=== PATIENT | female | born 1990 | race African-American/Black ===

== ENCOUNTER 2023-11-02 04:17 | Day surgery (SDC) | payer OTHER ==
[2023-10-26 10:53] VITALS: BMI 45.6
[2023-11-02] MEDS ORDERED: BUPIVACAINE HCL/PF 0.25% (2.5MG/ML) 10 ML VIAL ONE (10:07)
[2023-11-02] MEDS ORDERED: ROCURONIUM BROMIDE 50 MG/5 ML SYRINGE ONE ×2 (10:20→11:44)
[2023-11-02] MEDS ORDERED: SUCCINYLCHOLINE CHLORIDE 200 MG/10 ML SYRINGE ONE (10:20)
[2023-11-02] MEDS ORDERED: ONDANSETRON 4 MG/2 ML VIAL ONE ×2 (10:20→14:31)
[2023-11-02] MEDS ORDERED: DEXAMETHASONE SOD PHOSPHATE 4 MG/1 ML VIAL ONE (10:20)
[2023-11-02] MEDS ORDERED: KETOROLAC TROMETHAMINE 30 MG/1 ML VIAL ONE ×2 (10:20→12:47)
[2023-11-02] MEDS ORDERED: LIDOCAINE HCL/PF 2% SDV 5ML VIAL ONE ×2 (10:20→13:19)
[2023-11-02] MEDS ORDERED: ACETAMINOPHEN INJECTION 100 ML IVPB ONE (10:22)
[2023-11-02] MEDS ORDERED: cefOXitin SODIUM 2 GM VIAL (RESTRICTED TO ID) IVPB ONE ×2 (10:22→11:15)
[2023-11-02] MEDS ORDERED: PROPOFOL 40 ML ONE (10:23)
[2023-11-02] MEDS ORDERED: HEPARIN NA (PORCINE) 5,000 UNITS/ML 1ML VIAL ONE (10:24)
[2023-11-02] MEDS ORDERED: MIDAZOLAM HCL 2 MG/2 ML SINGLE DOSE VIAL ONE (10:27)
[2023-11-02] MEDS ORDERED: HYDROmorphone HCl 2 MG/ML VIAL ONE ×2 (11:01→14:41)
[2023-11-02] MEDS ORDERED: KETAMINE HCL 200 MG/20 ML VIAL ONE (11:01)
[2023-11-02] MEDS ORDERED: MAGNESIUM SULF 50% (8.12 MEQ/2 ML-1 GM VIAL) ONE (11:22)
[2023-11-02] MEDS ORDERED: BUPIVACAINE HCL/PF 0.25% (2.5MG/ML) 10 ML VIAL IJ ONE (11:43)
[2023-11-02] MEDS ORDERED: ONDANSETRON 4 MG/2 ML VIAL IVPUSH PRN (12:04)
[2023-11-02] MEDS ORDERED: oxyCODONE HCL 5 MG TABLET PO PRN (12:04)
[2023-11-02] MEDS ORDERED: LACTATED RINGERS SOLUTION 1,000 ML IV SCH (12:15)
[2023-11-02] MEDS ORDERED: SUGAMMADEX SODIUM 200 MG/2 ML VIAL ONE (12:44)
[2023-11-02] MEDS ORDERED: SODIUM CHLORIDE 0.9% P/F 10 ML VIAL IJ ONE (14:36)
[2023-11-02] MEDS ORDERED: oxyCODONE HCL 5 MG TABLET ONE (15:59)
[2023-11-02 16:25] VITALS: RESP 20
[2023-11-02 16:40] VITALS: BP 108/57; PULSE 56; TEMP 97.8
[2023-11-02] MEDS ORDERED: HYDROmorphone HCl 2 MG/ML VIAL IVPUSH ONE (18:16)
== END 2023-11-02 17:00 | disposition home or self-care (01) ==
LOC: JASU-SURG 04:17
PROVIDERS: ATTEND Surgery
PROC: 0FT44ZZ Resection of Gallbladder, Percutaneous Endoscopic Approach (ICD-10-PCS; principal; 2023-11-02 13:00)
DX: K80.20 Calculus of gallbladder without cholecystitis without obstruction (principal)
CPT/HCPCS: 81025; 86850; 86900; 86901; 94760; J0131; J1644

== ENCOUNTER 2023-11-14 08:49 | Observation (INO) | payer OTHER ==
[2023-11-14] MEDS ORDERED: ONDANSETRON 4 MG/2 ML VIAL ONE ×2 (10:05→15:17)
[2023-11-14] MEDS ORDERED: morphine SULFATE 4 MG/ML VIAL ONE ×2 (10:06→15:18)
[2023-11-14] MEDS: ONDANSETRON 4 MG/2 ML VIAL IVPUSH ONE (10:12)
[2023-11-14] MEDS: morphine CARPU-JECT 4 MG/1 ML DISP.SYRIN IVPUSH ONE ×2 (10:12→15:23)
[2023-11-14 10:17] LABS: BASO % 0.6 % (0-2.0); EOS % 2.3 % (0-4.5); HEMATOCRIT 34.6 % (32.4-45.2); HEMOGLOBIN 11.4 GM/dL (10.7-15.3); LYMPH % 21.6 % (8-40); MCH 33.5 pg (25.7-33.7); MCHC 33.1 g/dl (32.0-36.0); MEAN CELL VOLUME 101.4 fl (80-96); MEAN PLT VOLUME 7.8 fl (7.5-11.1); MONO % 9.2 % (3.8-10.2); NEUT % 66.3 % (42.8-82.8); PLATELET COUNT 361 10^3/uL (134-434); RBC 3.41 M/mm3 (3.60-5.2); RDW 14.6 % (11.6-15.6); WHITE BLOOD COUNT 9.2 K/mm3 (4.0-10.0)
[2023-11-14 10:24] LABS: INR 1.28 (0.83-1.09); PROTHROMBIN TIME (PATIENT) 14.8 SEC (9.7-13.0)
[2023-11-14 10:33] LABS: POTASSIUM 4.3 mmol/L (3.5-5.1)
[2023-11-14 10:35] LABS: ALBUMIN 3.3 g/dl (3.4-5.0); BLOOD UREA NITROGEN 13.8 mg/dL (7-18); CALCIUM 8.7 mg/dL (8.5-10.1)
[2023-11-14 10:38] LABS: CREATININE 0.9 mg/dL (0.55-1.3)
[2023-11-14 10:40] LABS: BILIRUBIN,TOTAL 0.4 mg/dL (0.2-1); TOT PROT 7.3 g/dl (6.4-8.2)
[2023-11-14 11:24] LABS: EPI CELLS >36 /uL (0-25.1); HYALINE CASTS 3 /uL (0-3.1); PH,URINE 6.5 (5.0-8.0); URINE APPEARANCE CLOUDY; URINE BACTERIA >9,000 /uL (0-1359); URINE BILIRUBIN NEGATIVE (NEGATIVE); URINE COLOR DK YELLOW; URINE GLUCOSE (UA) NEGATIVE (NEGATIVE); URINE KETONE TRACE (NEGATIVE); URINE LEUK ESTERASE NEGATIVE (NEGATIVE); URINE NITRITE POSITIVE (NEGATIVE); URINE PROTEIN NEGATIVE (NEGATIVE); URINE RBC 23 /uL (0-23.9); URINE WBC 21 /uL (0-25.8)
[2023-11-14 11:34] LABS: HCG,QUALITATIVE URINE Negative
[2023-11-14] MEDS ORDERED: NITROFURANTOIN MACROCRYSTAL 50 MG CAPSULE (FP) ONE (12:22)
[2023-11-14] MEDS: NITROFURANTOIN MONOHYD/M-CRYST 100 MG CAPSULE PO ONE (12:25)
[2023-11-14] MEDS: LACTATED RINGERS SOLUTION 1,000 ML/1,000 ML INFUS.BAG IV SCH (17:57)
[2023-11-14] MEDS ORDERED: ACETAMINOPHEN INJECTION 100 ML IVPB ONE (19:13)
[2023-11-14] MEDS: ACETAMINOPHEN 1000 MG/100 ML BAG IVPB PRN (19:17)
[2023-11-14 19:23] LABS: PH,URINE 6.5 (5.0-8.0); URINE APPEARANCE CLEAR; URINE BILIRUBIN NEGATIVE (NEGATIVE); URINE COLOR YELLOW; URINE GLUCOSE (UA) NEGATIVE (NEGATIVE); URINE KETONE NEGATIVE (NEGATIVE); URINE LEUK ESTERASE NEGATIVE (NEGATIVE); URINE NITRITE NEGATIVE (NEGATIVE); URINE PROTEIN NEGATIVE (NEGATIVE)
[2023-11-14] MEDS ORDERED: AMPICILLIN NA/SULBACTAM NA 3 GM VIAL ONE (21:36)
[2023-11-14] MEDS: AMPICILLIN NA/SULBACTAM NA 3 GM in DEXTROSE 5%-WATER 100 ML IVPB SCH (21:54)
[2023-11-15 04:12] VITALS: BMI 44.6
[2023-11-15] MEDS ORDERED: oxyCODONE HCL 5 MG TABLET PO PRN (09:23)
[2023-11-15] MEDS: PANTOPRAZOLE 40 MG TABLET PO SCH (10:36)
[2023-11-15] MEDS: LACTOBACILLUS ACIDOPHILUS 1 TABLET PO SCH (10:36)
[2023-11-15] MEDS: CEPHALEXIN MONOHYDRATE 500 MG CAPSULE (UD) PO SCH (10:36)
[2023-11-15] MEDS: POLYETHYLENE GLYCOL (HEALTHYLAX) 3350 17 GM PACKET PO SCH (10:36)
[2023-11-15 10:38] LABS: BASO % 0.8 % (0-2.0); EOS % 2.9 % (0-4.5); HEMATOCRIT 33.8 % (32.4-45.2); LYMPH % 37.9 % (8-40); MCH 33.1 pg (25.7-33.7); MCHC 32.6 g/dl (32.0-36.0); MEAN CELL VOLUME 101.6 fl (80-96); MEAN PLT VOLUME 8.2 fl (7.5-11.1); MONO % 9.9 % (3.8-10.2); NEUT % 48.5 % (42.8-82.8); PLATELET COUNT 351 10^3/uL (134-434); RBC 3.33 M/mm3 (3.60-5.2); RDW 14.1 % (11.6-15.6); WHITE BLOOD COUNT 6.8 K/mm3 (4.0-10.0)
[2023-11-15 10:44] LABS: INR 1.21 (0.83-1.09)
[2023-11-15 10:47] LABS: ACTIVATED PTT 27.4 SECONDS (25.2-36.5)
[2023-11-15 10:59] LABS: POTASSIUM 4.2 mmol/L (3.5-5.1)
[2023-11-15 11:02] LABS: CALCIUM 8.7 mg/dL (8.5-10.1)
[2023-11-15 11:03] LABS: ALBUMIN 3.3 g/dl (3.4-5.0); MAGNESIUM 1.9 mg/dL (1.8-2.4)
[2023-11-15 11:06] LABS: CREATININE 0.8 mg/dL (0.55-1.3); PHOSPHOROUS 3.3 mg/dL (2.5-4.9)
[2023-11-15 11:08] LABS: BILIRUBIN,TOTAL 0.4 mg/dL (0.2-1); TOT PROT 7.2 g/dl (6.4-8.2)
[2023-11-15 11:52] VITALS: BP 127/90; PULSE 76; RESP 20; TEMP 98.2
== END 2023-11-15 12:06 | disposition home or self-care (01) ==
LOC: JER 08:49 → JERBED 16:02 → UNDOADMOB 16:02 → OBSVTOIN 17:21 → INTOOBSV 17:21 → J8W 22:21 → JERBED 22:21 → J8W 11-15 08:59 → JERBED 11-15 08:59
PROVIDERS: ADMIT Internal Medicine; ATTEND Nurse Practitioner Acute Care
PROC: 3E0337Z Introduction of Electrolytic and Water Balance Substance into Peripheral Vein, Percutaneous Approach (ICD-10-PCS; principal; 2023-11-15)
PROC: 3E033NZ Introduction of Analgesics, Hypnotics, Sedatives into Peripheral Vein, Percutaneous Approach (ICD-10-PCS; 2023-11-15)
PROC: 3E03329 Introduction of Other Anti-infective into Peripheral Vein, Percutaneous Approach (ICD-10-PCS; 2023-11-15)
PROC: 3E033GC Introduction of Other Therapeutic Substance into Peripheral Vein, Percutaneous Approach (ICD-10-PCS; 2023-11-15)
DX: N39.0 Urinary tract infection, site not specified (principal); Z98.890 Other specified postprocedural states; Z29.9 Encounter for prophylactic measures, unspecified; Z90.49 Acquired absence of other specified parts of digestive tract; E66.01 Morbid (severe) obesity due to excess calories; Z68.41 Body mass index [BMI] 40.0-44.9, adult; L73.2 Hidradenitis suppurativa
CPT/HCPCS: 36415; 74177-TC; 80053; 81003; 83690; 83735; 84100; 84703; 85025; 85610; 85730; 86850; 86900; 86901; 87086; 87186; 96361; 96365; 96375; 99285-25; G0378; J0131; Q9967